=== PATIENT | male | born 2000 | race Caucasian/White ===

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

== ENCOUNTER 2019-07-04 09:45 | Emergency (ER) | payer MEDICAID, OTHER ==
[2019-07-04] MEDS ORDERED: Ondansetron 4 MG/2 ML SDV IVPUSH ONE (10:15)
[2019-07-04] MEDS ORDERED: Sodium Chloride 0.9% 10 ML Syringe FLUSH PRN (10:15)
[2019-07-04] MEDS ORDERED: Sodium Chloride 0.9% 1,000 ML IV STA (10:15)
--- NOTE | 2019-07-04 10:25 | EDM.PDOC ---
<Cathi Desai - Last Filed: 07/04/19 10:17> ED HPI GENERAL MEDICAL PROBLEM - General Chief Complaint: Gastrointestinal Problem Stated Complaint: RT SIDE ABD PAIN AND VOMITING Time Seen by Provider: 07/04/19 10:00 Source of Information: Reports: Patient History Limitations: Reports: No Limitations - History of Present Illness INITIAL COMMENTS - FREE TEXT/NARRATIVE: Patient is a pleasant 19-year-old male who presents to the ED for complaints of right lower quadrant and right flank pain, nausea, vomiting, and diarrhea. He reports he has had right lower quadrant discomfort for the past 3 months, but it has increased over the past three days, this is when the nausea, vomiting, and diarrhea started. He reports the pain is intermittent and describes as sharp and stabbing. The pain gets as high as a 9/10 when it spasms. He reports he has not been able to sleep on his right side because the pain intensifies and causes him to become nauseous. He has had three episodes of emesis and two episodes of loose diarrhea in the past three days. He denies blood in stool or emesis. Last episode of emesis was yesterday and last episode of diarrhea was this morning. He denies fever, chills, chest pain, shortness of breath, and dysuria. Right Lower Abdominal Pain Score (Numeric/FACES): 2 - Related Data Allergies Allergy/AdvReac Type Severity Reaction Status Date / Time No Known Allergies Allergy Verified 07/04/19 09:59 Home Meds: Home Meds Ondansetron [Zofran ODT] 4 mg PO Q6H PRN #20 tab.dis 07/04/19 [Rx] buPROPion HCL [Bupropion Xl] 300 mg PO DAILY 07/04/19 [History] busPIRone [Buspar] 5 - 10 mg PO BID 07/04/19 [History] Past Medical History - Past Health History Medical/Surgical History: Denies Medical/Surgical History Psychiatric History: Reports: ADHD - Past Surgical History HEENT Surgical History: Reports: Tonsillectomy Social & Family History - Tobacco Use Smoking Status *Q: Never Smoker Second Hand Smoke Exposure: No - Caffeine Use Caffeine Use: Reports: Energy Drinks, Soda Other Caffeine Use: states that he doesnt consume these often any more. - Recreational Drug Use Recreational Drug Use: No ED ROS GENERAL - Review of Systems Review Of Systems: See Below Constitutional: Reports: No Symptoms. Denies: Fever, Chills, Weakness, Decreased Appetite Respiratory: Reports: No Symptoms. Denies: Shortness of Breath Cardiovascular: Reports: No Symptoms. Denies: Chest Pain, Edema, Syncope GI/Abdominal: Reports: Abdominal Pain (right lower quadrant), Diarrhea, Hematemesis, Nausea, Vomiting. Denies: Black Stool, Bloody Stool, Melena : Reports: Flank Pain (right). Denies: Dysuria, Hematuria Musculoskeletal: Reports: Back Pain (RLQ and flank pain radiates to right mid back). Denies: Muscle Pain Skin: Reports: No Symptoms. Denies: Rash, Erythema Neurological: Reports: No Symptoms. Denies: Dizziness, Headache, Numbness, Syncope, Tingling Psychiatric: Reports: No Symptoms ED EXAM, GI/ABD - Physical Exam Exam: See Below Exam Limited By: No Limitations General Appearance: Alert, WD/WN, No Apparent Distress Head: Atraumatic, Normocephalic Neck: Normal Inspection, Supple, Non-Tender, Full Range of Motion Respiratory/Chest: No Respiratory Distress, Lungs Clear, Normal Breath Sounds, No Accessory Muscle Use, Chest Non-Tender Cardiovascular: Normal Peripheral Pulses, Regular Rate, Rhythm, No Edema, No Gallop, No Murmur, No Rub GI/Abdominal Exam: Normal Bowel Sounds, Soft, No Organomegaly, No Distention, No Abnormal Bruit, No Mass, Tender (right lower quadrant and right flank with palpation) Back Exam: Normal Inspection, Full Range of Motion, CVA Tenderness (R). No: CVA Tenderness (L) Extremities: Normal Inspection, Normal Range of Motion, Non-Tender, Normal Capillary Refill, No Pedal Edema Neurological: Alert, Oriented, Normal Cognition, Normal Gait, No Motor/Sensory Deficits Psychiatric: Normal Affect, Normal Mood Skin Exam: Warm, Dry, Intact, Normal Color, No Rash Lymphatic: No Adenopathy Course - Orders/Labs/Meds Orders: Active Orders 24 hr Category Date Time Status Peripheral IV Care [RC] . DIRECTED Care 07/04/19 10:15 Active Sodium Chloride 0.9% [Saline Flush] Med 07/04/19 10:15 Active 10 ml FLUSH ASDIRECTED PRN ED Antiemetic Medication Reflex [OM.PC] Stat Oth 07/04/19 10:15 Ordered Peripheral IV Insertion Adult [OM.PC] Stat Oth 07/04/19 10:15 Ordered Medication Orders Sodium Chloride (Saline Flush) 10 ml FLUSH ASDIRECTED PRN PRN Reason: Keep Vein Open Last Admin: 07/04/19 11:17 Dose: 10 ml Labs: Laboratory Tests 07/04/19 07/04/19 07/04/19 Range/Units 10:43 10:43 12:38 WBC 5.67 (4.23-9.07) K/mm3 RBC 4.85 (4.63-6.08) M/mm3 Hgb 15.0 (13.7-17.5) gm/dl Hct 42.5 (40.1-51.0) % MCV 87.6 (79.0-92.2) fl MCH 30.9 (25.7-32.2) pg MCHC 35.3 (32.2-35.5) g/dl RDW Std Deviation 39.7 (35.1-43.9) fL Plt Count 244 (163-337) K/mm3 MPV 8.6 L (9.4-12.3) fl Neut % (Auto) 48.5 (34.0-67.9) % Lymph % (Auto) 35.6 (21.8-53.1) % [place] % (Auto) 11.8 (5.3-12.2) % Eos % (Auto) 3.2 (0.8-7.0) Baso % (Auto) 0.7 (0.1-1.2) % Neut # (Auto) 2.75 (1.78-5.38) K/mm3 Lymph # (Auto) 2.02 (1.32-3.57) K/mm3 [place] # (Auto) 0.67 (0.30-0.82) K/mm3 Eos # (Auto) 0.18 (0.04-0.54) K/mm3 Baso # (Auto) 0.04 (0.01-0.08) K/mm3 Sodium 142 (136-145) mEq/L Potassium 4.1 (3.5-5.1) mEq/L Chloride 107 (98-107) mEq/L Carbon Dioxide 26 (21-32) mEq/L Anion Gap 13.1 (5-15) BUN 12 (7-18) mg/dL Creatinine 1.3 (0.7-1.3) mg/dL Est Cr Clr Drug Dosing 87.69 mL/min Estimated GFR (MDRD) > 60 (>60) mL/min BUN/Creatinine Ratio 9.2 L (14-18) Glucose 84 (74-106) mg/dL Calcium 9.0 (8.5-10.1) mg/dL Total Bilirubin 0.4 (0.2-1.0) mg/dL AST 9 L (15-37) U/L ALT 18 (16-63) U/L Alkaline Phosphatase 83 (46-116) U/L Total Protein 7.0 (6.4-8.2) g/dl Albumin 3.8 (3.4-5.0) g/dl Globulin 3.2 gm/dL Albumin/Globulin Ratio 1.2 (1-2) Lipase 161 (73-393) U/L Urine Color Yellow (Yellow) Urine Appearance Clear (Clear) Urine pH 7.0 (5.0-8.0) Ur Specific [place] 1.025 (1.005-1.030) Urine Protein Negative (Negative) Urine Glucose (UA) Negative (Negative) Urine Ketones Negative (Negative) Urine Occult Blood Negative (Negative) Urine Nitrite Negative (Negative) Urine Bilirubin Negative (Negative) Urine Urobilinogen 0.2 (0.2-1.0) Ur Leukocyte Esterase Negative (Negative) Urine RBC Not seen (0-5) /hpf Urine WBC 0-5 (0-5) /hpf Ur Squamous Epith Cells 0-5 (0-5) /hpf Urine Bacteria Few (FEW) /hpf Urine Mucus Rare (FEW) /hpf Meds: Medications Generic Name Dose Route Start Last Admin Trade Name Freq PRN Reason Stop Dose Admin Sodium Chloride 10 ml 07/04/19 10:15 07/04/19 11:17 Saline Flush FLUSH 10 ml ASDIRECTED PRN Administration Keep Vein Open Discontinued Medications Generic Name Dose Route Start Last Admin Trade Name Freq PRN Reason Stop Dose Admin Sodium Chloride 1,000 mls @ 1,000 mls/hr 07/04/19 10:15 07/04/19 11:17 Normal Saline IV 07/04/19 11:14 1,000 mls/hr .BOLUS STA Administration Ondansetron HCl 4 mg 07/04/19 10:15 07/04/19 11:17 Zofran IVPUSH 07/04/19 10:16 4 mg ONETIME ONE Administration Departure - Departure Disposition: Home, Self-Care 01 Clinical Impression: Gastroenteritis, Right flank pain - Discharge Information Prescriptions: Ondansetron [Zofran ODT] 4 mg PO Q6H PRN #20 tab.dis PRN Reason: Nausea\vomiting Referrals: Nohelia Irby PA-C [Primary Care Provider] - 1 Week Forms: ED Department Discharge, ED Return to Work/School Form Additional Instructions: Drink plenty of fluids. Take zofran every 6 hours as needed for nausea and vomiting. Take tylenol or motrin as needed for pain. Please return if you are worse. Sepsis Event Note - Evaluation Sepsis Screening Result: No Definite Risk - My Orders Last 24 Hours: My Active Orders 07/04/19 10:15 Peripheral IV Care [RC] . DIRECTED Sodium Chloride 0.9% [Saline Flush] 10 ml FLUSH ASDIRECTED PRN ED Antiemetic Medication Reflex [OM.PC] Stat Peripheral IV Insertion Adult [OM.PC] Stat - Assessment/Plan Last 24 Hours: My Active Orders 07/04/19 10:15 Peripheral IV Care [RC] . DIRECTED Sodium Chloride 0.9% [Saline Flush] 10 ml FLUSH ASDIRECTED PRN ED Antiemetic Medication Reflex [OM.PC] Stat Peripheral IV Insertion Adult [OM.PC] Stat <Ranulfo Srivastava - Last Filed: 07/04/19 13:51> Course - Re-Assessments/Exams Free Text/Narrative Re-Assessment/Exam: 07/04/19 13:45 I examined the patient myself and I agree with Cathi's assessment and plan. I ordered an IV, labs, UA, zofran 4mg IV and a CT of the abdomen and pelvis. His CBC and CMP look good. His lipase is normal. His UA shows no UTI. His CT shows right kidney smaller than the left side. No renal calculi, ureteral dilatation, or ureteral stone is seen. Mild increased stool within the colon. No additional abnormality is appreciated on noncontrast CT study of the abdomen and pelvis. Departure - Departure Time of Disposition: 13:50 Condition: Good - Discharge Information *PRESCRIPTION DRUG MONITORING PROGRAM REVIEWED*: Not Applicable *COPY OF PRESCRIPTION DRUG MONITORING REPORT IN PATIENT SANTIAGO: Not Applicable
--- NOTE | 2019-07-04 10:57 | CT ---
CT abdomen and pelvis Technique: Multiple axial sections were obtained from above the dome of the diaphragm inferiorly through the pubic symphysis. Intravenous and oral contrast not utilized. Study has been performed as a ureteral stone protocol. Findings: Right kidney is smaller than the left side. No renal calcifications are seen. No ureteral dilatation is identified. No abnormal calcifications are seen along the course of the ureters. Visualized lung bases show nothing acute. Liver contains no focal parenchymal abnormality. Spleen appears within normal limits. Gallbladder contains no calcified gallstones. Aorta shows no aneurysm. Pancreas is within normal limits for noncontrast exam. No retroperitoneal adenopathy is seen. Appendix is seen which is normal in size. No pelvic mass or adenopathy is seen. No free fluid or inflammatory change is seen. Mild increased stool is seen throughout the colon. Bone window settings were reviewed which appear within normal limits for the patient's age. Impression: 1. Right kidney smaller than the left side. No renal calculi, ureteral dilatation or ureteral stone is seen. 2. Mild increased stool within the colon. 3. No additional abnormality is appreciated on noncontrast CT study of the abdomen and pelvis. Diagnostic code #2 This report was dictated in [place] Standard Time
== END 2019-07-04 14:03 | disposition home or self-care (01) ==
LOC: JD.ED 09:45
DX: K52.9 Noninfective gastroenteritis and colitis, unspecified (principal)
CPT/HCPCS: 36415; 74176; 80053; 81001; 83690; 85025; 96361; 96374; 99284; J2405; J7030; 99283

== ENCOUNTER 2020-01-20 16:19 | Emergency (ER) | payer MEDICAID ==
--- NOTE | 2020-01-20 17:50 | CR ---
Left knee: 4 views left knee were obtained. Comparison: No previous knee study. Medial and lateral joint compartments are maintained in height. No joint effusion is seen. No acute fracture or other bony abnormality is appreciated. Impression: 1. No abnormality is appreciated on 4 view left knee exam. Diagnostic code #1 This report was dictated in MDT
--- NOTE | 2020-01-20 17:53 | EDM.PDOC ---
ED HPI GENERAL MEDICAL PROBLEM - General Chief Complaint: Lower Extremity Injury/Pain Stated Complaint: L LEG INJURY Time Seen by Provider: 01/20/20 17:34 Source of Information: Reports: Patient, RN Notes Reviewed History Limitations: Reports: No Limitations - History of Present Illness INITIAL COMMENTS - FREE TEXT/NARRATIVE: Patient is a 19-year-old male who presents to the ED for evaluation of a left knee injury. States he was playing football around noon today, when he ended up falling and landing on his left knee, he states he thought that maybe he twisted it at that time. It went numb directly after that, but this is gotten better since then. He is complaining of some dull aching and throbbing to the knee. He has been able to bear weight, but it is somewhat difficult to do so. He went home took a nap, and states that his knee buckled on him before coming to the ER, this is what made him decide to come to the ER. Again he is having a dull, throbbing pain to the knee, mostly to the inferior aspect. He states that twisting the knee and bending are very painful. He did not take anything for pain medication. Pain radiates nowhere else besides in the knee. He is not been known to have any other sick-like symptoms, fever/chills, cough/shortness of breath, nausea/vomiting/diarrhea. He has not had any previous injuries to this knee ever. Left Knee Pain Score (Numeric/FACES): 3 - Related Data Allergies Allergy/AdvReac Type Severity Reaction Status Date / Time No Known Allergies Allergy Verified 01/20/20 16:38 Home Meds: Home Meds buPROPion HCL [Bupropion Xl] 300 mg PO DAILY 07/04/19 [History] busPIRone [Buspar] 5 - 10 mg PO BID 07/04/19 [History] Past Medical History Psychiatric History: Reports: ADHD - Infectious Disease History Infectious Disease History: Reports: None - Past Surgical History HEENT Surgical History: Reports: Tonsillectomy Social & Family History - Tobacco Use Smoking Status *Q: Never Smoker Second Hand Smoke Exposure: No - Caffeine Use Caffeine Use: Reports: None Other Caffeine Use: states that he doesnt consume these often any more. - Recreational Drug Use Recreational Drug Use: No Review of Systems - Review of Systems Review Of Systems: Comprehensive ROS is negative, except as noted in HPI. ED EXAM, GENERAL - Physical Exam Exam: See Below Exam Limited By: No Limitations General Appearance: Alert, WD/WN, No Apparent Distress Respiratory/Chest: No Respiratory Distress, Lungs Clear, Normal Breath Sounds, No Accessory Muscle Use, Chest Non-Tender Cardiovascular: Normal Peripheral Pulses, Regular Rate, Rhythm, No Murmur Peripheral Pulses: 2+: Radial (L), Radial (R) Extremities: Normal Inspection, Normal Capillary Refill, Limited Range of Motion (of left knee d/t pain, most of his pain is into his inferior knee) Neurological: Alert, Oriented, Normal Cognition, No Motor/Sensory Deficits Psychiatric: Normal Affect, Normal Mood Skin Exam: Warm, Dry, Intact, Normal Color, No Rash Course - Vital Signs Last Recorded V/S: Last Vital Signs Temp 98.2 F 01/20/20 16:36 Pulse 82 01/20/20 16:36 Resp 16 01/20/20 16:36 BP 120/79 01/20/20 16:36 Pulse Ox 98 01/20/20 16:36 - Orders/Labs/Meds Orders: Active Orders 24 hr Category Date Time Status Knee Min 4V Lt [CR] Stat Exams 01/20/20 16:41 Taken DME for Discharge [COMM] Routine Oth 01/20/20 17:40 Ordered - Re-Assessments/Exams Free Text/Narrative Re-Assessment/Exam: 01/20/20 17:49 Patient presents to the ED for the evaluation of his left knee injury. X-rays were obtained at time of triage, demonstrate no focal bony abnormalities or frac tures. Patient will be discharged home with a knee immobilizer and crutches and he will be nonweightbearing, he will be given a note for work to reflect light duty only. Departure - Departure Time of Disposition: 17:50 Disposition: Home, Self-Care 01 Condition: Good Clinical Impression: Left knee injury Qualifiers: Encounter type: initial encounter Qualified Code(s): S89.92XA - Unspecified injury of left lower leg, initial encounter - Discharge Information *PRESCRIPTION DRUG MONITORING PROGRAM REVIEWED*: No *COPY OF PRESCRIPTION DRUG MONITORING REPORT IN PATIENT SANTIAGO: No Instructions: How to Use a Knee Immobilizer, [id number] Referrals: Nohelia Irby PA-C [Primary Care Provider] - Forms: ED Department Discharge, ED Return to Work/School Form Additional Instructions: You have been evaluated in the ED for your left knee injury. Your x-ray demonstrated no acute fracture or other bony abnormality. Please use ice as tolerated to the affected area. You may elevate the affected area to provide further relief from swelling. You are given a knee immobilizer, and crutches, please try to utilize these as much as possible to help provide further pain relief. You may take Tylenol 500 mg or ibuprofen 600mg q6 hrs for pain relief. Please do so until you have a tolerable level of pain with activity. Do not exceed 4000mg Tylenol, Do not exceed 3200mg ibuprofen in a 24 hour time period. Please call Ortho for follow-up and further evaluation Dr. Payne is our orthopedic surgeon, his office number is [phone]. Please call and set up an appointment as soon as possible for further management regarding further imaging and the possible need for MRI. Please return to ED if your symptoms should change or worsen. Sepsis Event Note (ED) - Evaluation Sepsis Screening Result: No Definite Risk - Focused Exam Vital Signs: Vital Signs Temp Pulse Resp BP Pulse Ox 01/20/20 16:36 98.2 F 82 16 120/79 98 - My Orders Last 24 Hours: My Active Orders 01/20/20 16:41 Knee Min 4V Lt [CR] Stat 01/20/20 17:40 DME for Discharge [COMM] Routine - Assessment/Plan Last 24 Hours: My Active Orders 01/20/20 16:41 Knee Min 4V Lt [CR] Stat 01/20/20 17:40 DME for Discharge [COMM] Routine
== END 2020-01-20 18:15 | disposition home or self-care (01) ==
LOC: JD.ED 16:19
DX: S89.92XA Unspecified injury of left lower leg, initial encounter (principal); Z79.899 Other long term (current) drug therapy; X50.1XXA Overexertion from prolonged static or awkward postures, initial encounter; Y93.61 Activity, american tackle football
CPT/HCPCS: 73564-26-LT; 73564-LT; 99282; 99283

== ENCOUNTER 2020-12-03 11:25 | Emergency (ER) | payer MEDICAID ==
[2020-12-03] MEDS ORDERED: Lidocaine 1% 10 ML MDV INJECT ONE (11:53)
[2020-12-03] MEDS ORDERED: Bupivacaine 0.5% 10 ML SDV INJECT ONE (11:53)
--- NOTE | 2020-12-03 12:44 | EDM.PDOC ---
ED HPI GENERAL MEDICAL PROBLEM - General Chief Complaint: Laceration Stated Complaint: R BIG TOE LAC Time Seen by Provider: 12/03/20 11:42 Source of Information: Reports: Patient, RN Notes Reviewed History Limitations: Reports: No Limitations - History of Present Illness INITIAL COMMENTS - FREE TEXT/NARRATIVE: Patient is a 20-year-old male presenting to the emergency department with complaints of injury to his right great toe. Reports his toe was run over by a pallet talha. Toenail bent over. He tried working with that but has been unable to do so due to the pain. He is up-to-date on his vaccinations. right great toe Pain Score (Numeric/FACES): 6 - Related Data Allergies Allergy/AdvReac Type Severity Reaction Status Date / Time No Known Allergies Allergy Verified 12/03/20 11:41 Home Meds: Home Meds buPROPion HCL [Bupropion Xl] 300 mg PO DAILY 07/04/19 [History] busPIRone [Buspar] 5 - 10 mg PO BID 07/04/19 [History] Past Medical History - Past Health History Medical/Surgical History: Denies Medical/Surgical History Psychiatric History: Reports: ADHD - Infectious Disease History Infectious Disease History: Reports: None - Past Surgical History HEENT Surgical History: Reports: Tonsillectomy Social & Family History - Tobacco Use Tobacco Use Status *Q: Never Tobacco User - Caffeine Use Caffeine Use: Reports: None Other Caffeine Use: states that he doesnt consume these often any more. - Recreational Drug Use Recreational Drug Use: No ED ROS GENERAL - Review of Systems Review Of Systems: Comprehensive ROS is negative, except as noted in HPI. ED EXAM, SKIN/RASH Exam: See Below General Appearance: Alert, Mild Distress Respiratory/Chest: No Respiratory Distress, Lungs Clear, Normal Breath Sounds, No Accessory Muscle Use, Chest Non-Tender Cardiovascular: Normal Peripheral Pulses, Regular Rate, Rhythm, No Edema, No Gallop, No JVD, No Murmur, No Rub Extremities: Other (Distal one third of the toenail to the right great toe is bent backwards. No active bleeding. No swelling or ecchymosis.) Neurological: Alert, Oriented, CN II-XII Intact, Normal Cognition, Normal Reflexes, No Motor/Sensory Deficits Psychiatric: Normal Affect, Normal Mood Course - Vital Signs Last Recorded V/S: Last Vital Signs Temp 98.4 F 12/03/20 11:38 Pulse 74 12/03/20 11:38 Resp 17 12/03/20 11:38 BP 125/82 12/03/20 11:38 Pulse Ox 100 12/03/20 11:38 - Orders/Labs/Meds Meds: Medications Discontinued Medications Generic Name Dose Route Start Last Admin Trade Name [place] PRN Reason Stop Dose Admin Bupivacaine HCl 10 ml 12/03/20 11:53 12/03/20 12:23 Bupivacaine 0.5% 10 Ml Sdv INJECT 12/03/20 11:54 10 ml ONETIME ONE Administration Lidocaine HCl 10 ml 12/03/20 11:53 12/03/20 12:23 Lidocaine 1% 10 Ml Mdv INJECT 12/03/20 11:54 10 ml ONETIME ONE Administration - Re-Assessments/Exams Free Text/Narrative Re-Assessment/Exam: Patient is a 20-year-old male presenting to the emergency department with complaints of injury to his right great toe. On exam, the distal one third of his toenail is bent backwards. There is no obvious ecchymosis or deformity of the toe. After digital block was completed with equal parts of lidocaine 1% and bupivacaine 0.5%, the toenail was able to be flipped back into the normal position. It is intact at this time. X-ray of the great toe shows no evidence of fracture. Band-Aid was applied to the toe. He will be discharged home. Recommend intermittent Epson salt soaks and keeping the toe covered to avoid the nail snagging on things. He verbalized understanding of this. Discharge instructions as documented. Departure - Departure Time of Disposition: 13:17 Disposition: Home, Self-Care 01 Condition: Good Clinical Impression: Injury of toenail of right foot Qualifiers: Encounter type: initial encounter Qualified Code(s): S99.921A - Unspecified injury of right foot, initial encounter - Discharge Information *PRESCRIPTION DRUG MONITORING PROGRAM REVIEWED*: No *COPY OF PRESCRIPTION DRUG MONITORING REPORT IN PATIENT SANTIAGO: No Instructions: Nail Bed Injury, [id number] Referrals: Nohelia Irby PA-C [Primary Care Provider] - Forms: ED Department Discharge Additional Instructions: You were seen in the emergency department today for injury to your right great toenail. Digital block was completed. After anesthetization, the toenail was able to be flipped back into its normal position. X-rays were completed and show no fracture. Recommend keeping the toe covered to avoid the nail snagging on things. As the nailbed underneath heals and the toenail begins to grow out, you may clip the toenail gradually. Recommend intermittent Epson salt soaks for the next few days. You may use Tylenol and ibuprofen as needed for discomfort. Icing the area may also be beneficial. Return to ER for any new or worsening symptoms. Sepsis Event Note (ED) - Evaluation Sepsis Screening Result: No Definite Risk - Focused Exam Vital Signs: Vital Signs Temp Pulse Resp BP Pulse Ox 12/03/20 11:38 98.4 F 74 17 125/82 100
--- NOTE | 2020-12-03 13:24 | CR ---
Right first toe: 4 views of the right first toe were obtained. Joint spaces are preserved. No acute fracture, dislocation or other bony abnormality is seen. Slight soft tissue swelling is noted. Impression: 1. Mild soft tissue swelling. 2. No acute osseous abnormality is appreciated on right first toe study. Diagnostic code #2
== END 2020-12-03 14:06 | disposition home or self-care (01) ==
LOC: JD.ED 11:25
DX: S99.921A Unspecified injury of right foot, initial encounter (principal); W22.8XXA Striking against or struck by other objects, initial encounter
CPT/HCPCS: 64450; 73660; 99283; J3490

== ENCOUNTER 2021-12-17 20:37 | Emergency (ER) | payer BC, MEDICAID ==
[2021-12-17] MEDS ORDERED: Sodium Chloride 0.9% 1,000 ML IV ONE (20:45)
[2021-12-17] MEDS ORDERED: Sodium Chloride 0.9% 10 ML Syringe FLUSH PRN (20:45)
[2021-12-17] MEDS ORDERED: Ondansetron 4 MG/2 ML SDV IVPUSH ONE (20:45)
[2021-12-17] MEDS ORDERED: Loperamide 2 MG Cap PO ONE (20:54)
[2021-12-17] MEDS ORDERED: Alum Hydrox/Mag Hydrox/Simeth 30 ML, Lidocaine 2% 15 ML PO ONE ×2 (21:46)
[2021-12-17] MEDS ORDERED: Metoclopramide 10 MG/2 ML SDV IVPUSH ONE (22:18)
[2021-12-17] MEDS ORDERED: diphenhydrAMINE 50 MG/ML SDV IVPUSH ONE (22:37)
== END 2021-12-17 23:47 | disposition home or self-care (01) ==
LOC: JD.ED 20:37
DX: R11.2 Nausea with vomiting, unspecified (principal); Z79.899 Other long term (current) drug therapy
CPT/HCPCS: 36415; 80053; 85025; 96361; 96374; 96375; 99284-25; A9270-GY; J1200; J2405; J2765; J3490; J7030

== ENCOUNTER 2023-08-25 19:19 | Emergency (ER) | payer BC, MEDICAID ==
[2023-08-25] MEDS: Ondansetron 4 MG/2 ML SDV IVPUSH ONE (19:51)
[2023-08-25] MEDS: Lactated Ringers 2,000 ML IV SCH (19:51)
[2023-08-25] MEDS: Haloperidol Lactate 5 MG/ML SDV IVPUSH ONE (19:51)
[2023-08-25] MEDS: Sodium Chloride 0.9% 10 ML Syringe FLUSH PRN ×2 (19:53→20:55)
[2023-08-25 20:11] LABS: BASOPHILS ABSOLUTE AUTO 0.1 K/mm3 (0.0-0.2); BASOPHILS PERCENT AUTO 0.3 % (0.0-1.0); EOSINOPHILS PERCENT AUTO 0.2 % (0.0-6.0); IMMATURE GRAN ABSOLUTE AUTO 0.07 K/mm3 (0.00-0.05); IMMATURE GRAN PERCENT AUTO 0.4 % (0.0-0.4); LYMPHOCYTES ABSOLUTE AUTO 0.2 K/mm3 (1.0-4.8); LYMPHOCYTES PERCENT AUTO 1.2 % (24.0-44.0); MEAN CORPUSCULAR HEMOGLOBIN 31.8 pg (28.0-32.0); MEAN CORPUSCULAR HGB CONC 35.2 g/dl (32.0-36.0); MEAN CORPUSCULAR VOLUME 90.5 fl (83.0-99.0); MONOCYTES ABSOLUTE AUTO 1.6 K/mm3 (0.0-0.8); MONOCYTES PERCENT AUTO 8.6 % (0.0-8.0); NEUTROPHILS ABSOLUTE AUTO 16.8 K/mm3 (1.8-7.7); NEUTROPHILS PERCENT AUTO 89.3 % (41.0-71.0); PLATELET COUNT,PLT 257 K/mm3 (150-400); RED BLOOD CELL COUNT 5.97 M/mm3 (4.52-5.90); WHITE BLOOD CELL COUNT,WBC 18.86 K/mm3 (3.9-11.3)
[2023-08-25 20:35] LABS: A/G RATIO 1.3 (1-2); ANION GAP 18.6 (5-15); BILIRUBIN TOTAL 0.7 mg/dL (0.2-1.0); BUN/CREATININE RATIO 12.5 (14-18); CALCIUM 9.7 mg/dL (8.5-10.1); CREATININE 1.6 mg/dL (0.7-1.3); EST CRCL DRUG DOSING (CG) 64.24 mL/min; POTASSIUM,K 3.6 mEq/L (3.5-5.1); PROTEIN TOTAL,TP 8.9 g/dl (6.4-8.2)
[2023-08-25] MEDS: Iopamidol 612 MG/ML 100 ML Bottle IVPUSH ONE (20:55)
[2023-08-25 22:19] LABS: APPEARANCE,URINE CLEAR (Clear); BILIRUBIN,URINE 1+ (Negative); COLOR,URINE YELLOW (Yellow); GLUCOSE,URINE NEGATIVE (Negative); KETONES,URINE 3+ (Negative); LEUKOCYTE ESTERASE,URINE NEGATIVE (Negative); NITRITE,URINE NEGATIVE (Negative); OCCULT BLOOD,URINE TRACE-INTACT (Negative); PH,URINE 6.5 (5.0-8.0); PROTEIN,URINE TRACE (Negative); UROBILINOGEN,URINE 0.2 (0.2-1.0)
[2023-08-25 22:26] LABS: BARBITURATE SCREEN,URINE NEGATIVE (CUTOFF=200); BENZODIAZEPINES SCREEN,URINE NEGATIVE (CUTOFF=150); BUPRENORPHINE SCREEN,URINE NEGATIVE (CUTOFF=10); METHADONE SCREEN, URINE NEGATIVE (CUT0FF=200); METHAMPHETAMINES SCREEN, URINE NEGATIVE (CUTOFF=500); OXYCODONE SCREEN,URINE NEGATIVE (CUT0FF=100); THC SCREEN,URINE 20 NG/ML PRESUMPTIVE POSITIVE (CUTOFF=50)
[2023-08-25 22:27] LABS: AMPHETAMINES SCREEN, URINE NEGATIVE (CUTOFF=500)
[2023-08-25 22:29] LABS: BACTERIA,URINE FEW /hpf (FEW); MUCUS,URINE FEW /hpf (FEW); RBC,URINE 0-5 /hpf (0-5); SQUAMOUS EPITHELIAL CELLS,UR 0-5 /hpf (0-5); WBC,URINE 0-5 /hpf (0-5)
== END 2023-08-25 23:00 | disposition home or self-care (01) ==
LOC: JD.ED 19:19
DX: E86.0 Dehydration (principal); Z79.899 Other long term (current) drug therapy
CPT/HCPCS: 36415; 74177; 74177-26; 80053; 80306; 81001; 83690; 85025; 96361; 96374; 96375; 99284; 99284-25; J1630; J2405; J3490; J7120; Q9967